=== PATIENT | female | born 1985 | race African-American/Black ===

== ENCOUNTER 2016-12-09 19:50 | Emergency (ER) | payer SELFPAY ==
[~2016-12-09] VITALS: Ht 160 cm; Wt 103.0 kg
[~2016-12-09 19:50] MED LIST: FERR325T PO; IBUP800T23 PO; MIRA33504 PO; NORG1TAB29 PO
[2016-12-09 19:51] VITALS: BP 138/67; PULSE 90; RESP 16; TEMP 98.5; O2SAT 100
[2016-12-09 20:55] LABS: AUTOMATED NEUTROPHIL # 7.1 TH/MM3 (1.8-7.7); BASOPHIL # 0.1 TH/MM3 (0-0.2); BASOPHIL % 1.1 % (0.0-2.0); EOSINOPHIL # 0.1 TH/MM3 (0-0.4); EOSINOPHIL % 1.2 % (0.0-4.0); HEMATOCRIT 37.8 % (35.0-46.0); LYMPH % 18.6 % (9.0-44.0); LYMPHOCYTE # 1.8 TH/MM3 (1.0-4.8); MEAN CELL VOLUME 76.4 FL (80.0-100.0); MEAN CORPUSCULAR HEMOGLOBIN 24.2 PG (27.0-34.0); MEAN CORPUSCULAR HGB CONC 31.7 % (32.0-36.0); MEAN PLATELET VOLUME 9.7 FL (7.0-11.0); MONO % 6.8 % (0.0-8.0); MONOCYTE # 0.7 TH/MM3 (0-0.9); NEUT % 72.3 % (16.0-70.0); PLATELET COUNT 309 TH/MM3 (150-450); RED BLOOD COUNT 4.95 MIL/MM3 (4.00-5.30); RED CELL DISTRIBUTION WIDTH 19.5 % (11.6-17.2); WHITE BLOOD COUNT 9.8 TH/MM3 (4.0-11.0)
--- NOTE | 2016-12-09 21:12 | PD ---
HPI Chief Complaint: [employer] Problem/Complaint Time Seen by Provider: 20:22 Travel History International Travel<30 days: No Contact w/Intl Traveler<30days: No Traveled to known affect area: No History of Present Illness HPI This is a 30-year-old female who has a history of iron deficiency anemia and heavy menstrual cycles who presents to the emergency department with increasing vaginal bleeding over the past 24 hours using about 7 pads, constant, moderate severity associated with lightheadedness, dizziness and fatigue. She takes iron every day. She has required blood transfusions in the past. She doesn't think there is any chance she could be . PFSH Past Medical History Anemia: Yes Diminished Hearing: No GERD: Yes Headaches: Yes Immunizations Current: Yes Influenza Vaccination: No ?: Unknown LMP: 12-08-2016 Menopausal: No : 2 Para: 2 Miscarriage: 0 : 0 Past Surgical History Other Surgery: No Social History Alcohol Use: No Tobacco Use: No Substance Use: No Allergies-Medications (Allergen,Severity, Reaction): Coded Allergies: penicillin G (Verified Allergy, Severe, HIVES, 12/09/16) Reported Meds & Prescriptions Reported Meds & Active Scripts Active Miralax Powder (Polyethylene Glycol 3350 Powder) 17 Gm Powd 17 Gm PO DAILY Mix and dissolve one measuring cap-ful (17 grams) in water or juice. Ferrous Sulfate 325 Mg Tab 325 Mg PO BID Please take with orange juice. Low-Ogestrel (Norgestrel-Ethinyl Estradiol) 0.3-30 Mg-Mcg Tab 1 Tab PO DAILY Ibuprofen 800 Mg Tab 800 Mg PO Q8H Review of Systems Except as stated in HPI: all other systems reviewed are Neg Physical Exam Narrative GENERAL:Well appearing, no acute distress SKIN: Focused skin assessment warm and dry. HEAD: Atraumatic. Normocephalic. EYES: Pupils equal and round. No injection or drainage. ENT: Moist mucous membranes NECK: Trachea midline. CARDIOVASCULAR: Regular rate and rhythm. No murmur appreciated. RESPIRATORY: Clear to auscultation. Breath sounds equal bilaterally. GASTROINTESTINAL: Abdomen soft, non-tender, nondistended. MUSCULOSKELETAL: No obvious deformities. NEUROLOGICAL: Awake and alert. No obvious cranial nerve deficits. Moving all extremities. PSYCHIATRIC: Appropriate mood and affect; insight and judgment normal. Data Data Last Documented VS Vital Signs Date Time Temp Pulse Resp B/P (MAP) Pulse Ox O2 Delivery O2 Flow Rate FiO2 12/09/16 19:51 98.5 90 16 138/67 (90) 100 Room Air Orders Orders Complete Blood Count With Diff (12/09/16 20:25) Labs Laboratory Tests Test 12/09/16 20:32 White Blood Count 9.8 TH/MM3 Red Blood Count 4.95 MIL/MM3 Hemoglobin 12.0 GM/DL Hematocrit 37.8 % Mean Corpuscular Volume 76.4 FL Mean Corpuscular Hemoglobin 24.2 PG Mean Corpuscular Hemoglobin Concent 31.7 % Red Cell Distribution Width 19.5 % Platelet Count 309 TH/MM3 Mean Platelet Volume 9.7 FL Neutrophils (%) (Auto) 72.3 % Lymphocytes (%) (Auto) 18.6 % Monocytes (%) (Auto) 6.8 % Eosinophils (%) (Auto) 1.2 % Basophils (%) (Auto) 1.1 % Neutrophils # (Auto) 7.1 TH/MM3 Lymphocytes # (Auto) 1.8 TH/MM3 Monocytes # (Auto) 0.7 TH/MM3 Eosinophils # (Auto) 0.1 TH/MM3 Basophils # (Auto) 0.1 TH/MM3 CBC Comment DIFF FINAL Differential Comment MDM Medical Decision Making Medical Screen Exam Complete: Yes Emergency Medical Condition: Yes Interpretation(s) Hemoglobin is 12 Differential Diagnosis Menorrhagia, anemia, dysfunctional uterine bleeding Narrative Course This is a 30-year-old female who presents to the emergency department reporting heavy vaginal bleeding and lightheadedness and dizziness. Her hemoglobin is reassuring. She has a benign physical exam. I think she is safe for discharge. Diagnosis Primary Impression: Menorrhagia Qualified Codes: N92.0 - Excessive and frequent menstruation with regular cycle Patient Instructions: General Instructions Additional Instructions: Heavy bleeding can be caused by many things including: - One of your ovaries not releasing an egg during one or more months - Growths in the uterus called fibroids - A bleeding disorder that prevents your blood from clotting normally - Side effects of some medicines, such as some types of control or blood thinners - A problem with your thyroid (a gland that makes hormones) Return to the emergency department if you: Need to use both tampons and pads at the same time because you are bleeding so much Need to change your pad or tampon during the night Or are feeling lightheaded, weak, dizzy, have chest pain, shortness of breath or are having difficulty exerting yourself Med/Other Pt SpecificInfo: No Change to Meds Disposition: 01 DISCHARGE HOME Condition: Stable Corinne Herman MD Dec 09, 2016 21:12
== END 2016-12-09 21:45 | disposition home or self-care (01) ==
LOC: NEPE 19:50
DX: N92.0 Excessive and frequent menstruation with regular cycle (principal); D50.9 Iron deficiency anemia, unspecified
CPT/HCPCS: 84703; 85025; 99283

== ENCOUNTER 2017-01-03 17:10 | Emergency (ER) | payer MEDICAID ==
[~2017-01-03] VITALS: Ht 160 cm; Wt 105.0 kg
[~2017-01-03 17:10] MED LIST changes: +IBUP1TAB7 PO; -IBUP800T23 PO
[2017-01-03 17:12] VITALS: BP 143/91; PULSE 72; RESP 16; TEMP 98.5; O2SAT 100
[2017-01-03] MEDS ORDERED: ACETAMINOPHEN 325 MG TAB PO ONE (18:30)
[2017-01-03 18:47] LABS: BACTERIA, URINE MANY /hpf; BLOOD, URINE NEG (NEG); COMMENT (UR) CULTURE INDICATED; CULTURE IF INDICATED CULTURE INDICATED; GLUCOSE,URINE NEG (NEG); KETONE, URINE 80 mg/dL (NEG); MUCUS URINE FEW /lpf (OCC); NITRITE,URINE POS (NEG); PH, URINE 6.5 (5.0-8.5); SQUAMOUS EPITHELIAL CELL URINE 52 /hpf (0-5); URINE COLOR YELLOW (YELLW/STRAW)
[2017-01-03] MEDS ORDERED: CEPH-460 PO (18:57)
--- NOTE | 2017-01-03 19:01 | PD ---
HPI Chief Complaint: Cold / Flu Symptoms Time Seen by Provider: 18:03 Travel History International Travel<30 days: No Contact w/Intl Traveler<30days: No Traveled to known affect area: No History of Present Illness HPI 31-year-old Afro-[place] female presents the emergency department due to history of generalized aches and pains and fever as well as dysuria. Some mild nausea but no vomiting or diarrhea. She denies . She has no cough or upper respiratory symptoms. She is allergic to penicillin. PFSH Past Medical History Medical History: Denies Significant Hx Anemia: Yes Diminished Hearing: No GERD: Yes Headaches: Yes Immunizations Current: Yes Tetanus Vaccination: < 5 Years ?: Not Menopausal: No : 2 Para: 2 Miscarriage: 0 : 0 Past Surgical History Abdominal Aneurysm Repair: Yes Other Surgery: No Social History Alcohol Use: No Tobacco Use: No Substance Use: No Allergies-Medications (Allergen,Severity, Reaction): Coded Allergies: penicillin G (Verified Allergy, Severe, HIVES, 01/03/17) Reported Meds & Prescriptions Reported Meds & Active Scripts Active Keflex (Cephalexin) 500 Mg Capsule 500 Mg PO Q8H 7 Days Ferrous Sulfate 325 Mg Tab 325 Mg PO BID Please take with orange juice. Review of Systems General / Constitutional: Positive: Fever, Chills Eyes: No: Visual changes HENT: No: Headaches, Lightheadedness, Sore Throat, Rhinitis, Rhinorrhea, Congestion, Nosebleed, Neck Stiffness, Neck Pain, Earache Cardiovascular: No: Chest Pain or Discomfort Respiratory: No: Cough, Shortness of Breath, Wheezing Gastrointestinal: Positive: Nausea, Abdominal Pain, No: Vomiting Genitourinary: Positive: Urgency, Frequency, Dysuria, No: Pelvic Pain, Flank Pain Musculoskeletal: No: Pain Skin: No Rash Neurologic: No: Weakness Psychiatric: No: Depression Endocrine: No: Polydipsia Hematologic/Lymphatic: No: Easy Bruising Physical Exam Narrative GENERAL: Patient appears in mild distress. She does not appear septic. SKIN: Warm and dry. Normal color. Normal turgor. HEAD: Atraumatic. Normocephalic. EYES: Pupils equal and round. No scleral icterus. No injection or drainage. ENT: No nasal bleeding or discharge. Mucous membranes pink and moist. TMs are clear bilaterally. Pharynx is clear. Airway is patent. NECK: Trachea midline. Supple nontender. CARDIOVASCULAR: Regular rate and rhythm. No murmurs gallops or rubs. RESPIRATORY: No accessory muscle use. Clear to auscultation. Breath sounds equal bilaterally. GASTROINTESTINAL: Abdomen soft, nonspecific lower abdominal tenderness, nondistended. No point tenderness or rebound. Hepatic and splenic margins not palpable. No CVA tenderness. MUSCULOSKELETAL: Extremities without clubbing, cyanosis, or edema. No obvious deformities. NEUROLOGICAL: Awake and alert. No obvious cranial nerve deficits. Motor grossly within normal limits. Five out of 5 muscle strength in the arms and legs. Normal speech. PSYCHIATRIC: Appropriate mood and affect; insight and judgment normal. Data Data Last Documented VS Vital Signs Date Time Temp Pulse Resp B/P (MAP) Pulse Ox O2 Delivery O2 Flow Rate FiO2 01/03/17 17:12 98.5 72 16 143/91 (108) 100 Room Air Orders Orders Urinalysis - C+S If Indicated (01/03/17 18:18) Acetaminophen (Tylenol) (01/03/17 18:30) Urine Culture (01/03/17 18:30) Labs Laboratory Tests Test 01/03/17 18:30 Urine Color YELLOW Urine Turbidity CLOUDY Urine pH 6.5 Urine Specific [place] 1.020 Urine Protein TRACE mg/dL Urine Glucose (UA) NEG mg/dL Urine Ketones 80 mg/dL Urine Occult Blood NEG Urine Nitrite POS Urine Bilirubin NEG Urine Urobilinogen 2.0 MG/DL Urine Leukocyte Esterase MOD Urine RBC 3 /hpf Urine WBC 7 /hpf Urine Squamous Epithelial Cells 52 /hpf Urine Amorphous Sediment RARE Urine Bacteria MANY /hpf Urine Mucus FEW /lpf Microscopic Urinalysis Comment CULTURE INDICATED MDM Medical Decision Making Medical Screen Exam Complete: Yes Emergency Medical Condition: Yes Differential Diagnosis Viral illness. Nausea. Fever. Urinary tract infection. Narrative Course Urinalysis sent to the lab and shows probable urinary tract infection. Urinary culture is pending. Patient is treated with Keflex 500 mg 3 times a day 7 days. Patient is to rest push fluids and take Tylenol or ibuprofen as needed. Work note is given. Patient follow up if symptoms do not improve or worsen as needed. Diagnosis Primary Impression: UTI (urinary tract infection) Qualified Codes: N30.00 - Acute cystitis without hematuria Referrals: Primary Care Physician Patient Instructions: Dysuria (ED), General Instructions Departure Forms: Work Release Enter return to work date: Jan 05, 2017 Med/Other Pt SpecificInfo: Prescription(s) given Scripts Cephalexin (Keflex) 500 Mg Capsule 500 MG PO Q8H for Infection for 7 Days, #21 CAP 0 Refills Prov: Coy Ugalde MD 01/03/17 Disposition: 01 DISCHARGE HOME Condition: Stable Fam Jorge Jan 03, 2017 19:01
== END 2017-01-03 20:55 | disposition home or self-care (01) ==
LOC: NEPK 17:10
DX: N39.0 Urinary tract infection, site not specified (principal); B96.20 Unspecified Escherichia coli [E. coli] as the cause of diseases classified elsewhere; R11.0 Nausea; D64.9 Anemia, unspecified; K21.9 Gastro-esophageal reflux disease without esophagitis; Z79.899 Other long term (current) drug therapy; Z88.0 Allergy status to penicillin
CPT/HCPCS: 81001; 87077; 87086; 87186; 99283

== ENCOUNTER 2017-02-28 14:37 | Emergency (ER) | payer MEDICAID ==
[~2017-02-28] VITALS: Ht 160 cm; Wt 105.9 kg
[~2017-02-28 14:37] MED LIST changes: +CEPH-460 PO; -IBUP1TAB7 PO; -MIRA33504 PO; -NORG1TAB29 PO
[2017-02-28 14:39] VITALS: BP 135/90; PULSE 73; RESP 18; TEMP 98.2; O2SAT 94
--- NOTE | 2017-02-28 15:30 | PD ---
HPI Chief Complaint: Respiratory Symptoms Time Seen by Provider: 15:04 Travel History International Travel<30 days: No Contact w/Intl Traveler<30days: No Traveled to known affect area: No History of Present Illness HPI This is a 31-year-old female who presents for evaluation of a "scratchy throat" after she sat in a vehicle that had exhaust fumes. She reports she was in the vehicle less than 2 minutes. This event occurred approximately one hour prior to arrival. It caused her throat become irritated. She denies throat swelling , difficulty swallowing, headache, dizziness, fatigue, shortness of breath, nausea or vomiting. This was a work-related incident and she wanted to be "checked out". She currently reports that the throat discomfort has resolved spontaneously. Several other people were in the vehicle at the same time and are asymptomatic. She is also requesting evaluation for dysuria which she believes is UTI. The dysuria has been present for 3 days. She reports is intermittent and not with every void. She denies vaginal discharge, urinary frequency, urgency or flank pain. PFSH Past Medical History Anemia: Yes Diminished Hearing: No GERD: Yes Headaches: Yes Immunizations Current: Yes ?: Not LMP: 02/03/2017 Menopausal: No : 2 Para: 2 Miscarriage: 0 : 0 Past Surgical History Abdominal Aneurysm Repair: Yes Other Surgery: No Social History Alcohol Use: No Tobacco Use: No Substance Use: No Allergies-Medications (Allergen,Severity, Reaction): Coded Allergies: penicillin G (Verified Allergy, Severe, HIVES, 01/03/17) Reported Meds & Prescriptions Reported Meds & Active Scripts Active Keflex (Cephalexin) 500 Mg Capsule 500 Mg PO Q8H 7 Days Ferrous Sulfate 325 Mg Tab 325 Mg PO BID Please take with orange juice. Review of Systems Except as stated in HPI: all other systems reviewed are Neg Physical Exam Narrative GENERAL: Alert and well appearing 31-year-old female. SKIN: Warm and dry. HEAD: Normocephalic. EYES: No injection or drainage. THROAT: No pharyngeal erythema or swelling. Uvula is midline. Airway is patent. Normal phonation. NECK: Supple, trachea midline. CARDIOVASCULAR: Regular rate and rhythm RESPIRATORY: Breath sounds equal bilaterally. No accessory muscle use. GASTROINTESTINAL: Abdomen soft, non-tender, nondistended. MUSCULOSKELETAL: No cyanosis, or edema. BACK: Nontender without obvious deformity. No CVA tenderness. Data Data Last Documented VS Vital Signs Date Time Temp Pulse Resp B/P (MAP) Pulse Ox O2 Delivery O2 Flow Rate FiO2 02/28/17 14:39 98.2 73 18 135/90 (105) 94 Orders Orders Urinalysis - C+S If Indicated (02/28/17 15:17) MDM Medical Decision Making Medical Screen Exam Complete: Yes Emergency Medical Condition: Yes Differential Diagnosis Mild oropharynx irritation by exposure to chemical fumes. Very unlikely car monoxide poisoning. UTI Narrative Course This is a 31-year-old female who presents emergency department for evaluation of mild throat irritation after breathing in exhaust fumes in a work vehicle for less than 2 minutes. She does not endorse or demonstrate any signs of carbon monoxide poisoning. She is alert and asymptomatic. Her original pulse ox reading in triage was 94% on room air. The patient is wearing acrylic nails and a repeat pulse ox was obtained revealing a pulse ox of 99% on room air. She was also requesting evaluation for possible UTI but then declined the UA because she "didn't have time to wait for results in ". Diagnosis Primary Impression: Encounter for medical screening examination Referrals: [facility] Additional Instructions: Do not ride in that vehicle as he may be exposed to dangerous fumes such as carbon monoxide Return to the emergency department if he develops severe headache, shortness of breath, dizziness, weakness, altered mental status. Disposition: 01 DISCHARGE HOME Condition: Stable Cristina Hernandes Feb 28, 2017 15:30
== END 2017-02-28 15:41 | disposition home or self-care (01) ==
LOC: NEPK 14:37
DX: R09.89 Other specified symptoms and signs involving the circulatory and respiratory systems (principal); R30.0 Dysuria; Z86.2 Personal history of diseases of the blood and blood-forming organs and certain disorders involving the immune mechanism; Z87.19 Personal history of other diseases of the digestive system; X58.XXXA Exposure to other specified factors, initial encounter; Y92.818 Other transport vehicle as the place of occurrence of the external cause; Y99.0 Civilian activity done for income or pay
CPT/HCPCS: 99281

== ENCOUNTER 2017-04-06 07:05 | Emergency (ER) | payer MEDICAID ==
[~2017-04-06] VITALS: Ht 160 cm; Wt 105.0 kg
[2017-04-06 07:10] VITALS: BP 154/82; PULSE 66; RESP 12; TEMP 97.7; O2SAT 99
--- NOTE | 2017-04-06 07:27 | PD ---
HPI Chief Complaint: Complaint Time Seen by Provider: 07:19 Travel History International Travel<30 days: No Contact w/Intl Traveler<30days: No Traveled to known affect area: No History of Present Illness HPI 31-year-old female presents to the emergency department with complaint of low back pain and painful urination 2 weeks. R reports urinary frequency. Denies hematuria, hesitancy, urgency. Denies fever, vomiting, abdominal pain. Denies abnormal vaginal discharge, odor, lesions, H. Last menstrual period March 08. Denies contraception use. Has not taken any medications or trying treatments to alleviate her symptoms. Rates pain 5/10. Describes it as a pressure. No known aggravating or relieving factors. No primary care provider. Denies significant past medical history. Allergies to penicillin. Has no other medical complaints. No other modifying factors or associated signs and symptoms. PFSH Past Medical History Anemia: Yes Diminished Hearing: No GERD: Yes Headaches: Yes Immunizations Current: Yes ?: Not Menopausal: No : 2 Para: 2 Miscarriage: 0 : 0 Past Surgical History Abdominal Aneurysm Repair: Yes Other Surgery: No Social History Alcohol Use: No Tobacco Use: No Substance Use: No Allergies-Medications (Allergen,Severity, Reaction): Coded Allergies: penicillin G (Verified Allergy, Severe, HIVES, 04/06/17) Reported Meds & Prescriptions Reported Meds & Active Scripts Active Keflex (Cephalexin) 500 Mg Capsule 500 Mg PO Q8H 7 Days Ferrous Sulfate 325 Mg Tab 325 Mg PO BID Please take with orange juice. Review of Systems Except as stated in HPI: all other systems reviewed are Neg Physical Exam Narrative GENERAL: Well-nourished, well-developed black female patient, in no acute distress SKIN: Warm and dry. No rash. HEAD: Atraumatic. Normocephalic. EYES: Pupils equal and round. No scleral icterus. No injection or drainage. ENT: Mucosa pink and moist. NECK: Trachea midline. CARDIOVASCULAR: Regular rate and rhythm. No murmur appreciated. RESPIRATORY: No accessory muscle use. Clear to auscultation. Breath sounds equal bilaterally. GASTROINTESTINAL: Abdomen soft, non-tender, nondistended. Hepatic and splenic margins not palpable. Bowel sounds are active 4 quadrants. Bladder nontender and nondistended. MUSCULOSKELETAL: No obvious deformities. No clubbing. No cyanosis. No edema. BACK: No CVA tenderness NEUROLOGICAL: Awake and alert. Oriented 3. No obvious cranial nerve deficits. Motor grossly within normal limits. Normal speech. Moves all extremities. 5/5 strength to all extremities. PSYCHIATRIC: Appropriate mood and affect; insight and judgment normal. Data Data Last Documented VS Vital Signs Date Time Temp Pulse Resp B/P (MAP) Pulse Ox O2 Delivery O2 Flow Rate FiO2 04/06/17 07:10 97.7 66 12 154/82 (106) 99 Orders Orders Gc And Chlamydia Pcr (04/06/17 07:23) Urinalysis - C+S If Indicated (04/06/17 07:23) Ed Urine Pregnancytest Poc (04/06/17 07:23) Acetaminophen (Tylenol) (04/06/17 07:30) Urine Culture (04/06/17:23) Labs Laboratory Tests Test 04/06/17 07:23 Urine Color YELLOW Urine Turbidity CLOUDY Urine pH 5.5 Urine Specific [place] 1.032 Urine Protein 30 mg/dL Urine Glucose (UA) NEG mg/dL Urine Ketones NEG mg/dL Urine Occult Blood SMALL Urine Nitrite POS Urine Bilirubin NEG Urine Urobilinogen 2.0 MG/DL Urine Leukocyte Esterase LARGE Urine RBC 14 /hpf Urine WBC 16 /hpf Urine Squamous Epithelial Cells 62 /hpf Urine Bacteria MANY /hpf Urine Mucus MANY /lpf Urine Yeast (Budding) FEW Microscopic Urinalysis Comment CULTURE INDICATED MDM Medical Decision Making Medical Screen Exam Complete: Yes Emergency Medical Condition: Yes Medical Record Reviewed: Yes Differential Diagnosis Cystitis, UTI, pyelonephritis Narrative Course 31-year-old female with dysuria and urinary frequency. No CVA tenderness. Patient is afebrile and nontoxic-appearing. Denies fever, vomiting. Physical exam is unremarkable. After the patient pain medication and she declined. Urinalysis, UPT, voided chlamydia and gonorrhea ordered. 0729: Patient decided she would like some Tylenol for pain. Tylenol ordered. 0954: Urinalysis for signs of infection. Reflex to culture. Keflex and Pyridium prescribed for home. Instructed patient to follow up with primary care provider. Patient verbalizes understanding and agreement with treatment plan. Patient is medically cleared and stable for discharge. Discussed reasons to return to the emergency department. Patient agrees with treatment plan. The patients vital signs are stable and the patient is stable for outpatient follow-up and treatment. Patient discharged home, stable and in no acute distress. Diagnosis Primary Impression: UTI (urinary tract infection) Qualified Codes: N39.0 - Urinary tract infection, site not specified [facility] Primary Care Physician Patient Instructions: General Instructions, Urinary Tract Infection in Women ( ED) Additional Instructions: Take antibiotics as prescribed and complete full course Take Pyridium for bladder spasms: Pyridium will turn your urine bright orange Drink plenty of fluids Maintain good personal hygiene Follow-up with primary care provider Return to the emergency department immediately with worsening of symptoms Med/Other Pt SpecificInfo: Prescription(s) given Scripts Phenazopyridine (Pyridium) 100 Mg Tab 100 MG PO Q8H Y for DYSURIA for 3 Days, #9 TAB 0 Refills Prov: Camille Villanueva 04/06/17 Cephalexin (Keflex) 500 Mg Cap 500 MG PO Q12H for Infection for 7 Days, #14 CAP 0 Refills Prov: Camille Villanueva 04/06/17 Disposition: 01 DISCHARGE HOME Condition: Stable Camille Villanueva Apr 06, 2017 07:27
[2017-04-06] MEDS ORDERED: ACETAMINOPHEN 325 MG TAB PO ONE (07:30)
[2017-04-06 08:44] LABS: BACTERIA, URINE MANY /hpf; BILIRUBIN, URINE NEG (NEG); BLOOD, URINE SMALL (NEG); GLUCOSE,URINE NEG (NEG); KETONE, URINE NEG (NEG); MUCUS URINE MANY /lpf (OCC); NITRITE,URINE POS (NEG); PH, URINE 5.5 (5.0-8.5); SQUAMOUS EPITHELIAL CELL URINE 62 /hpf (0-5); URINE COLOR YELLOW (YELLW/STRAW); URINE LEUKOCYTE ESTERASE LARGE (NEG)
[2017-04-06] MEDS ORDERED: CEPH-460 PO (09:54)
[2017-04-06] MEDS ORDERED: PHEN0.4T PO (09:54)
[2017-04-06 10:06] VITALS: RESP 17
== END 2017-04-06 10:05 | disposition home or self-care (01) ==
LOC: NEPD 07:05
DX: N39.0 Urinary tract infection, site not specified (principal); N32.89 Other specified disorders of bladder; R30.0 Dysuria; Z88.0 Allergy status to penicillin
CPT/HCPCS: 81001; 84703; 87086; 87491; 87591; 99283

== ENCOUNTER 2017-05-20 07:52 | Emergency (ER) | payer MEDICAID, OTHER ==
[~2017-05-20] VITALS: Ht 160 cm; Wt 105.0 kg
[~2017-05-20 07:52] MED LIST changes: +PHEN0.4T PO
[2017-05-20 07:57] VITALS: BP 135/73; PULSE 76; RESP 18; TEMP 98.4; O2SAT 98
--- NOTE | 2017-05-20 09:28 | PD ---
HPI Chief Complaint: Back/ Neck Pain or Injury Time Seen by Provider: 08:31 Travel History International Travel<30 days: No Contact w/Intl Traveler<30days: No Traveled to known affect area: No History of Present Illness HPI 31-year-old female complains of low back pain, vaginal itching and dysuria. Patient states that she was seen in emergency room 6 years ago and was diagnosed with UTI. Patient was given prescription for Keflex and Pyridium. Patient states that she started having vaginal itching after finished with antibiotic. Patient started having dysuria for the past week. Patient states that she has aching low back pain. Patient denies any headache. Patient denies any chest pain or shortness of breath. Patient denies abdominal pain. Patient denies any chance of being . PFSH Past Medical History Anemia: Yes Diminished Hearing: No GERD: Yes Headaches: Yes Immunizations Current: Yes ?: Not LMP: 05/10/17 Menopausal: No : 2 Para: 2 Miscarriage: 0 : 0 Past Surgical History Abdominal Aneurysm Repair: Yes Other Surgery: No Social History Alcohol Use: No Tobacco Use: No Substance Use: No Allergies-Medications (Allergen,Severity, Reaction): Coded Allergies: penicillin G (Verified Allergy, Severe, HIVES, 04/06/17) Reported Meds & Prescriptions Reported Meds & Active Scripts Active No Active Prescriptions or Reported Medications Review of Systems General / Constitutional: No: Fever Eyes: No: Visual changes HENT: No: Headaches Cardiovascular: No: Chest Pain or Discomfort Respiratory: No: Shortness of Breath Gastrointestinal: No: Abdominal Pain Genitourinary: Positive: Dysuria Musculoskeletal: No: Pain Skin: No Rash Neurologic: No: Weakness Psychiatric: No: Depression Endocrine: No: Polydipsia Hematologic/Lymphatic: No: Easy Bruising Physical Exam Narrative GENERAL: Well-nourished, well-developed patient. SKIN: Focused skin assessment warm/dry. HEAD: Normocephalic. EYES: No scleral icterus. No injection or drainage. NECK: Supple, trachea midline. No JVD or lymphadenopathy. CARDIOVASCULAR: Regular rate and rhythm without murmurs, gallops, or rubs. RESPIRATORY: Breath sounds equal bilaterally. No accessory muscle use. GASTROINTESTINAL: Abdomen soft, non-tender, nondistended. MUSCULOSKELETAL: No cyanosis, or edema. BACK: Nontender without obvious deformity. No CVA tenderness. Data Data Last Documented VS Vital Signs Date Time Temp Pulse Resp B/P (MAP) Pulse Ox O2 Delivery O2 Flow Rate FiO2 05/20/17 07:57 98.4 76 18 135/73 (93) 98 Orders Orders Urinalysis - C+S If Indicated (05/20/17 08:01) Ed Urine Pregnancytest Poc (05/20/17 09:27) Urine Culture (05/20/17 09:35) Labs Laboratory Tests Test 05/20/17 09:35 Urine Color LIGHT-YELLOW Urine Turbidity CLEAR Urine pH 6.0 Urine Specific [place] 1.007 Urine Protein NEG mg/dL Urine Glucose (UA) NEG mg/dL Urine Ketones NEG mg/dL Urine Occult Blood NEG Urine Nitrite POS Urine Bilirubin NEG Urine Urobilinogen LESS THAN 2.0 MG/DL Urine Leukocyte Esterase MOD Urine RBC 4 /hpf Urine WBC 2 /hpf Urine Squamous Epithelial Cells 5 /hpf Urine Bacteria MANY /hpf Urine Mucus FEW /lpf Urine Yeast (Budding) RARE Microscopic Urinalysis Comment CULTURE INDICATED MDM Medical Decision Making Medical Screen Exam Complete: Yes Emergency Medical Condition: Yes Interpretation(s) 10:42 AM. UA positive for WBC and bacteria. Differential Diagnosis Differential diagnosis including Sabina vaginitis, UTI Narrative Course 31-year-old female complaining of low back pain, vaginal itching and dysuria. Diagnosis Primary Impression: UTI (urinary tract infection) Qualified Codes: N30.00 - Acute cystitis without hematuria Additional Impression: Sabina vaginitis Patient Instructions: General Instructions Additional Instructions: Bactrim DS as directed. Diflucan as directed. Follow-up with personal physician. Return if worse. Med/Other Pt SpecificInfo: Prescription(s) given Scripts Fluconazole (Diflucan) 150 Mg Tab 150 MG PO EVERY 3 DAYS for Infection, #2 TAB 0 Refills Prov: Scout Mcneil MD 05/20/17 Sulfamethoxazole-Trimethoprim (Bactrim DS) 800-160 Mg Tab 1 TAB PO BID for Infection, #6 TAB 0 Refills Prov: Scout Mcneil MD 05/20/17 Disposition: 01 DISCHARGE HOME Condition: Stable Scout Mcneil MD May 20, 2017 09:28
[2017-05-20 10:34] LABS: BACTERIA, URINE MANY /hpf; BILIRUBIN, URINE NEG (NEG); BLOOD, URINE NEG (NEG); GLUCOSE,URINE NEG (NEG); KETONE, URINE NEG (NEG); MUCUS URINE FEW /lpf (OCC); NITRITE,URINE POS (NEG); SQUAMOUS EPITHELIAL CELL URINE 5 /hpf (0-5); URINE COLOR LIGHT-YELLOW (YELLW/STRAW); URINE LEUKOCYTE ESTERASE MOD (NEG)
[2017-05-20] MEDS ORDERED: BACT800T5 PO (10:50)
[2017-05-20] MEDS ORDERED: DIFL150T PO (10:50)
== END 2017-05-20 11:22 | disposition home or self-care (01) ==
LOC: NEPE 07:52
DX: N39.0 Urinary tract infection, site not specified (principal); B96.20 Unspecified Escherichia coli [E. coli] as the cause of diseases classified elsewhere; B37.3 Candidiasis of vulva and vagina; D64.9 Anemia, unspecified; K21.9 Gastro-esophageal reflux disease without esophagitis; Z88.0 Allergy status to penicillin
CPT/HCPCS: 81001; 84703; 87077; 87086; 87186; 99283